=== PATIENT | male | born 1990 ===

== ENCOUNTER 2018-02-23 10:06 | Emergency (ER) | payer OTHER ==
[2018-02-23 10:24] VITALS: BP 126/73; PULSE 66; RESP 16; TEMP 98; O2SAT 100
--- NOTE | 2018-02-23 11:32 | ED PDOC ---
HPI: General Adult Time Seen by Provider: 02/23/18 10:32 Chief Complaint (Nursing): Back Pain History Per: Patient Additional Complaint(s): Pt. states for the past 2-3 days he's had atraumatic b/l flank pain. Describes pain as a squeezing sensation. States pain began spontaneously when he was sitting down. States initially pain caused him to have SOB but when he got up from a seated position SOB resolved but pain persists. Pain is specifically worse with twisting of upper torso. Denies chest pain, abd pain, hematuria, dysuria, incontinence, hx of kidney stones, trauma. Past Medical History Reviewed: Historical Data, Nursing Documentation, Vital Signs Vital Signs: Last Vital Signs Temp 98 F 02/23/18 10:18 Pulse 66 02/23/18 10:18 Resp 16 02/23/18 10:18 BP 126/73 02/23/18 10:18 Pulse Ox 100 02/23/18 11:35 - Medical History PMH: No Chronic Diseases - Surgical History Surgical History: No Surg Hx - Family History Family History: States: No Known Family Hx - Home Medications Home Medications: Ambulatory Orders Medication Instructions Recorded Cyclobenzaprine [Cyclobenzaprine 10 mg PO Q8 PRN #10 tab 02/23/18 HCl] Naproxen [Naprosyn] 500 mg PO BID PRN #10 tab 02/23/18 - Allergies Allergies/Adverse Reactions: Allergies Allergy/AdvReac Type Severity Reaction Status Date / Time No Known Allergies Allergy Verified 02/23/18 10:18 Review of Systems ROS Statement: Except As Marked, All Systems Reviewed And Found Negative Musculoskeletal: Positive for: Back Pain Physical Exam - Physical Exam Appears: Positive for: Well, Non-toxic, No Acute Distress Skin: Positive for: Normal Color, Warm. Negative for: Rash Eye Exam: Positive for: Normal appearance Cardiovascular/Chest: Positive for: Regular Rate, Rhythm, Chest Non Tender Respiratory: Positive for: CNT, Normal Breath Sounds Gastrointestinal/Abdominal: Positive for: Normal Exam, Bowel Sounds, Soft. Negative for: Tenderness Back: Positive for: Normal Inspection, Muscle Spasm (b/l paralumbar). Negative for: L CVA Tenderness, R CVA Tenderness, Vertebral Tenderness Neurologic/Psych: Positive for: Alert, Oriented. Negative for: Aphasia, Facial Droop - ECG O2 Sat by Pulse Oximetry: 100 - Progress ED Course And Treament: Toradol 30mg IM, flexeril 10mg PO, UA ordered. Re-evaluation Time: 12:30 (Denies SOB, chest pain. ) Condition: Re-examined, Improved Disposition - Clinical Impression Clinical Impression: Low back pain - Patient ED Disposition Is Patient to be Admitted: No - Disposition Referrals: [facility] [Outside] [facility] [Outside] Disposition: Routine/Home Disposition Time: 12:31 Condition: IMPROVED Additional Instructions: Return to ED if symptoms worsen. Follow up with [facility] for further evaluation. Prescriptions: Cyclobenzaprine [Cyclobenzaprine HCl] 10 mg PO Q8 PRN #10 tab PRN Reason: Muscle Spasm Naproxen [Naprosyn] 500 mg PO BID PRN #10 tab PRN Reason: Pain Instructions: Low Back Pain (DC) Forms: [facility] (Latvian) Print Language: GREENLANDIC
[2018-02-23 12:16] LABS: URINE BILIRUBIN NEGATIVE (NEGATIVE); URINE BLOOD NEGATIVE (NEGATIVE); URINE CLARITY SLIGHTY-CLOUDY (Clear); URINE COLOR YELLOW (YELLOW); URINE GLUCOSE (UA) NEG (Normal); URINE LEUKOCYTE ESTERASE NEG Leu/uL (Negative); URINE PROTEIN NEGATIVE (NEGATIVE); URINE UROBILINOGEN 0.2-1.0 mg/dL (0.2-1.0)
== END 2018-02-23 12:49 | disposition home or self-care (01) ==
LOC: H.ER 10:06
DX: M54.5 Low back pain (principal)
CPT/HCPCS: 81003; 96372; 99282; J1885